=== PATIENT | female | born 1975 | race Caucasian/White ===

== ENCOUNTER 2017-09-22 19:17 | Observation (INO) | payer OTHER ==
[2017-09-22 19:24] VITALS: BMI 42.9
--- NOTE | 2017-09-22 20:11 | DR.GENAD ---
HPI - PCP Primary Care Physician: ROCHELLE - Complaint/Symptoms Chief Complaint Doctors Comments: Patient admits to chest pain today while at the [place] [facility] about two hours ago, right chest pain non radiating. Denies history of cardiopulmonary disease. Patient admits to right cheek pain Chief Complaint:: CHEST NECK PAIN [employer] - Source History Provided: Patient - Mode of Arrival Mode of Arrival: Ambulatory - Timing Onset of Chief Complaint: 09/22/17 PMH - PMH Past Medical History: No Past Surgical History: Yes Surgical History: Cholecystectomy Past Surgical History Comment: BACK - Family History History of Family Medical Conditions: Yes Family Medical History: Coronary Artery Disease, Hypertension - Social History Does patient currently use any type of tobacco product: Yes Have you used tobacco products in the last 12 months: Yes Type of Tobacco Use: Cigarettes Does any household member use tobacco: No Alcohol Use: None Do you use any recreational Drugs:: No Lives With: Spouse Lives Where: Home - infectious screening In the last 2 months have you had wt loss of >10#?: NO Have you had fever, night sweats or hemotysis?: No Have you traveled outside the country in the last 6 months?: No Isolation: Standard ROS - Review of Systems Constitutional: No Symptoms Reported Eyes: No Symptoms Reported ENTM: No Symptoms Reported Respiratoy: No Symptoms Reported Cardiovascular: No Symptoms Reported Gastrointestinal/Abdominal: No Symptoms Reported Genitourinary: No Symptoms Reported Neurological: No Symptoms Reported Musculoskeletal: See HPI Integumentary: No Symptoms Reported Hematologic/Lymphatic: No Symptoms Reported Endocrine: No Symptoms Reported Psychiatric: No Symptoms Reported All Other Systems: Reviewed and Negative PE - Vital Signs Vitals: Pulse Rate [Left Brachial] 96 Pulse Rate 102 Respiratory Rate 26 Blood Pressure [Left Arm] 143/91 Blood Pressure 165/95 O2 Sat by Pulse Oximetry 99 - General General Appearance: Alert, In No Apparent Distress - Head Head Exam: Normal Inspection, Atraumatic - Eyes Eye exam: Normal Appearance, PERRL, EOMI - ENT ENT Exam: Normal Exam External Ear Exam: Normal External Inspection TM/Canal Exam: Bilateral Normal Nose Exam: Normal Nose Exam Mouth Exam: Normal Inspection Throat Exam: Normal Inspection - Neck Neck Exam: Normal Inspection - Chest Chest Inspection: Normal Inspection - Respiratory Respiratory Exam: Normal Lung Sounds Bilat Respiratory Exam: Bilateral Clear to Auscultation - Cardiovascular Cardiovascular Exam: Regular Rate, Normal Rhythm - Abdominal Exam Abdominal Exam: Normal Inspection Abdominal Tenderness: negative: RUQ, RLQ, LUQ, LLQ, Epigastrium, Suprapubic, Diffuse, Mild, Moderate, Severe, Other - Extremities Extremities Exam: Normal Inspection - Back Back Exam: Normal Inspection - Neurologic Neurological Exam: Alert, Oriented X3, CN II-XII Intact - Psychiatric Psychiatric Exam: Normal Affect - Skin Skin Exam: Warm, Dry, Intact Course - Consultation Called: 21:15 (Dr Padilla agreed to admit for further evaluation ) ROR - Labs Reviewed Result Diagrams: 09/22/17 20:29 09/22/17 20: Laboratory: WBC 7.9 X10^3/uL (3.6-10.0) 09/22/17 20: RBC 4.06 X10^6/uL (3.5-5.4) 09/22/17 20: Hgb 12.3 g/dL (12.0-16.0) 09/22/17 20: Hct 35.2 % (36.0-47.0) L 09/22/17 20: MCV 86.7 fL (80.0-100.0) 09/22/17 20: MCH 30.2 pg (27.0-34.0) 09/22/17 20: MCHC 34.9 g/dL (33.0-35.0) 09/22/17 20: RDW 14.5 % (11.6-16.5) 09/22/17 20: Plt Count 211 X10^3/uL (150.0-450.0) 09/22/17 20: MPV 7.5 fL (7.4-11.0) 09/22/17 20: Neut % (Auto) 60.3 % (42.0-75.0) 09/22/17 20: Lymph % (Auto) 30.1 % (21.0-51.0) 09/22/17 20: [place] % (Auto) 7.0 % (0.0-13.0) 09/22/17 20: Eos % (Auto) 1.9 % (0.9-2.9) 09/22/17 20: Baso % (Auto) 0.7 % (0.2-1.0) 09/22/17 20:29 Neut # (Auto) 4.8 x10^3/uL (2.2-4.8) 09/22/17 20: Lymph # (Auto) 2.4 X10^3/uL (1.3-2.9) 09/22/17 20: [place] # (Auto) 0.5 x10^3/uL (0.3-0.8) 09/22/17 20: Eos # (Auto) 0.1 x10^3/uL (0.0-0.2) 09/22/17 20: Baso # (Auto) 0.1 X10^3/uL (0.0-0.1) 09/22/17 20: Absolute Nucleated RBC 0.0 /100WBC 09/22/17 20: INR Target Range - 09/22/17 INR 0.91 (0.8-1.3) 09/22/17 20: APTT 30.1 SECONDS (22.9-36.5) 09/22/17 20: PTT Comment - 09/22/17 20: Sodium 138 mmol/L (136-145) 09/22/17 20: Corrected Sodium TNP 09/22/17 20: Potassium 4.6 mmol/L (3.5-5.1) 09/22/17 20: Chloride 103 mmol/L (98-107) 09/22/17 20: Carbon Dioxide 28.9 mmol/L (21-32) 09/22/17 20: BUN 17 mg/dL (7-18) 09/22/17 20: Creatinine 0.91 mg/dL (0.55-1.02) 09/22/17 20: Est GFR (MDRD) Af Amer > 60 (>60) 09/22/17 20: Est GFR (MDRD) Non-Af > 60 (>60) 09/22/17 20: Glucose 98 mg/dL (65-99) 09/22/17 20: Calcium 8.1 mg/dL (8.5-10.1) L 09/22/17 20: Corrected Calcium TNP 09/22/17 20: Magnesium 1.8 mg/dL (1.7-2.9) 09/22/17 20:29 Total Bilirubin 0.10 mg/dL (0.2-1.0) L 09/22/17 20:29 AST 43 Units/L (15-37) H 09/22/17 20:29 ALT 49 Units/L (12-78) 09/22/17 20:29 Alkaline Phosphatase 84 Units/L (46-116) 09/22/17 20:29 Creatine Kinase 65 Units/L (26-192) 09/22/17 20:29 CK-MB (CK-2) < 1.0 ng/mL (0-4.0) 09/22/17 20:29 CK/CKMB % Calc 1.5 % (<4) 09/22/17 20: Troponin I < 0.02 ng/mL (0-1.5) 09/22/17 20: Total Protein 7.4 g/dL (6.4-8.2) 09/22/17 20: Albumin 3.6 g/dL (3.4-5.0) 09/22/17 20: Globulin 3.8 g/dL (2.5-4.5) 09/22/17 20:29 Albumin/Globulin Ratio 0.9 Ratio (1.1-2.1) L 09/22/17 20:29 - XRAY XRAY Interpreted by: Radiologist (Facial bones: There is a right supraorbital piercing. The visualized paranasal sinuses and facial bones appear unremarkable. The mandible appears intact without evidence of chronic dental disease.) - Diagnosis Discharge Problem: Ruled out for myocardial infarction Chest pain Qualifiers: Chest pain type: unspecified Qualified Code(s): R07.9 - Chest pain, unspecified - Discharge Plan Condition: Stable - Follow ups/Referrals Follow ups/Referrals: INEZ BYRD [Primary Care Provider] - 3 days - Instructions
[2017-09-22] MEDS ORDERED: NITROSTAT SL PRN ×2 (20:14→20:58)
[2017-09-22] MEDS ORDERED: ASPIRIN 81 MG CHEWTAB ONE (20:18)
[2017-09-22] MEDS: ASPIRIN PO SCH (20:23)
[2017-09-22 20:39] LABS: BASOPHILS # (AUTO) 0.1 X10^3/uL (0.0-0.1); BASOPHILS % (AUTO) 0.7 % (0.2-1.0); EOSINOPHILS # (AUTO) 0.1 x10^3/uL (0.0-0.2); EOSINOPHILS % (AUTO) 1.9 % (0.9-2.9); HEMATOCRIT 35.2 % (36.0-47.0); HEMOGLOBIN 12.3 g/dL (12.0-16.0); LYMPHOCYTES # (AUTO) 2.4 X10^3/uL (1.3-2.9); LYMPHOCYTES % (AUTO) 30.1 % (21.0-51.0); MEAN CORPUSCULAR HEMOGLOBIN 30.2 pg (27.0-34.0); MEAN CORPUSCULAR HGB CONC 34.9 g/dL (33.0-35.0); MEAN CORPUSCULAR VOLUME 86.7 fL (80.0-100.0); MEAN PLATELET VOLUME 7.5 fL (7.4-11.0); MONOCYTES # (AUTO) 0.5 x10^3/uL (0.3-0.8); NEUTROPHILS # (AUTO) 4.8 x10^3/uL (2.2-4.8); NEUTROPHILS % (AUTO) 60.3 % (42.0-75.0); PLATELET COUNT 211 X10^3/uL (150.0-450.0); RED BLOOD COUNT 4.06 X10^6/uL (3.5-5.4); RED CELL DISTRIBUTION WIDTH 14.5 % (11.6-16.5); WHITE BLOOD COUNT 7.9 X10^3/uL (3.6-10.0)
[2017-09-22 21:02] LABS: ALANINE AMINOTRANSFERASE 49 Units/L (12-78); ALBUMIN 3.6 g/dL (3.4-5.0); ALKALINE PHOSPHATASE 84 Units/L (46-116); ASPARTATE AMINO TRANSFERASE 43 Units/L (15-37); BLOOD UREA NITROGEN 17 mg/dL (7-18); CALCIUM 8.1 mg/dL (8.5-10.1); CARBON DIOXIDE 28.9 mmol/L (21-32); CHLORIDE 103 mmol/L (98-107); CKMB % 1.5 % (<4); CREATINE KINASE 65 Units/L (26-192); CREATINE KINASE MB < 1.0 ng/mL (0-4.0); CREATININE 0.91 mg/dL (0.55-1.02); MAGNESIUM 1.8 mg/dL (1.7-2.9); SODIUM 138 mmol/L (136-145); TOTAL PROTEIN 7.4 g/dL (6.4-8.2); TROPONIN I < 0.02 ng/mL (0-1.5); eGFR BLACK RACES > 60 (>60); eGFR NON BLACK RACES > 60 (>60)
--- NOTE | 2017-09-22 21:47 | RAD ---
HISTORY: Pain Study: Three views of the facial bones Comparison: None Findings: There is a right supraorbital piercing. The visualized paranasal sinuses and facial bones appear unre markable. The mandible appears intact without evidence of chronic dental disease. IMPRESSION: 1. No acute osseous abnormality identified. Reported By:
[2017-09-23] MEDS: MORPHINE SULFATE INJ 2 MG INJ IVP PRN ×3 (00:40→10:24)
[2017-09-23] MEDS: NORCO 5/325 MG TAB PO PRN ×2 (01:36→11:56)
[2017-09-23 03:33] LABS: CKMB % 1.5 % (<4); CREATINE KINASE 65 Units/L (26-192); CREATINE KINASE MB < 1.0 ng/mL (0-4.0); TROPONIN I < 0.02 ng/mL (0-1.5)
--- NOTE | 2017-09-23 03:35 | RAD ---
Chest, AP portable Indication: Chest pain Comparison: None Findings: The cardiac silhouette is unremarkable the lungs are grossly clear without focal infiltrate or pleural effusion. Impression: No acute chest process. Reported By:
[2017-09-23 08:25] LABS: CHOL/HDL RATIO 3.3 (0.0-5.0)
[2017-09-23 08:34] LABS: CKMB % 1.5 % (<4); CREATINE KINASE 67 Units/L (26-192); CREATINE KINASE MB < 1.0 ng/mL (0-4.0); TROPONIN I < 0.02 ng/mL (0-1.5)
[2017-09-23] MEDS: ASPIRIN PO SCH (09:51)
[2017-09-23 11:20] LABS: CREATINE KINASE 69 Units/L (26-192); CREATINE KINASE MB < 1.0 ng/mL (0-4.0); TROPONIN I < 0.02 ng/mL (0-1.5)
[2017-09-23 11:23] LABS: CKMB % 1.5 % (<4)
--- NOTE | 2017-09-23 11:56 | VAS ---
History: Neck pain Study: Carotid duplex ultrasound Findings: Images show no evidence for stenosis or plaque or significant intimal thickening. Peak systolic velocity in the right common carotid artery is 66 centimeters/second compared to 72.4 c entimeters/second in the right carotid bulb for ratio of 1.19. Peak systolic velocity in the left common carotid artery is 88.5 centimeters/second compared to 68.8 centimeters/second in the left internal carotid artery for ratio of 0.91. There is antegrade flow in the vertebral arteries. Impression: Negative Reported By:
[2017-09-23 12:03] VITALS: BP 142/66
--- NOTE | 2017-10-04 21:37 | DR.CARTERS ---
Short Stay Summary - Short Stay Summary for: Short Stay Summary for Date of:: 09/23/17 - Admission Date Date of Admission: 09/22/17 - Discharge Date Discharge Date: 09/23/17 - Admission Diagnoses (1) Chest pain Status: Acute (2) Ruled out for myocardial infarction Status: Acute - Hospital Course Hospital Course: IS A 41 YEAR OLD WHITE FEMALE WHO PRESENTED TO THE EMERGENCY ROOM WITH COMPLAINTS OF CHEST PAIN AND RIGHT SIDE NECK PAIN. PATIENT REPORTED THAT PAIN STARTED APPROXIMATELY TWO HOURS PRIOR TO ARRIVAL. SHE REPORTED THAT PAIN IS LOCATED ON THE LEFT SIDE CHEST, NECK, AND FACE. SHE DENIED A HISTORY OF CARDIOPULMONARY DISEASE. ON ARRIVAL, VITALS WERE 98.7-102-20-97%-165/95. LABS WERE OBTAINED. ABNORMAL LAB VALUES INCLUDED THE FOLLOWING: HCT 35.2, CALCIUM 8.1 , TOTAL BILIRUBIN 0.10, AST 43. CARDIAC ENZYMES WITHIN NORMAL LIMITS. EKG OBTAINED AND REVEALED SINUS RHYTHM WITH HR 91. CHEST XRAY REVEALED NO ACUTE CHEST PROCESS. A FACIAL BONES XRAY WAS OBTAINED AND REVEALED NO ACUTE ABNORMALITIES. SHE WAS GIVEN ASPIRIN 325MG AND NITROGLYCERIN SL X 2 WITH ONLY MILD IMPROVEMENT IN SYMPTOMS. PATIENT WAS ADMITTED TO THE OBSERVATION UNIT ON TELEMETRY FOR OBSERVATION OF CHEST PAIN, R/O MYOCARDIAL INFARCTION. SERIAL CARDIAC ENZYMES AND EKGS WERE OBTAINED. OTHERWISE, WE PLANNED TO FOLLOW UP WITH AM LABS AND CONTINUE TO MONITOR PATIENT. ON THE MORNING FOLLOWING ADMISSION, PATIENT DENIED CHEST PAIN OR NECK PAIN UPON ROUNDS, BUT DID REPORT PAIN THROUGHOUT THE NIGHT. EXAMINATION REVEALED HEART NORMAL IN RATE AND RHYTHM. BILATERAL LUNGS CLEAR TO AUSCULTATION ABDOMEN ROUND, SOFT, AND NON-TENDER WITH NORMAL BOWEL SOUNDS NOTED IN ALL QUADRANTS. VITALS WERE 97.4-99-21-96%-124/78. CARDIAC ENZYMES AND EKGS WERE NORMAL. A CAROTID DOPPER WAS OBTAINED AND REVEALED NO EVIDENCE FOR STENOSIS OR PLAQUE OR SIGNIFICANT INTIMAL THICKENING. WE PLANNED FOR DISCHARGE, HOWEVER, PATIENT SIGNED OUT AMA PRIOR TO DISCHARGE INSTRUCTIONS AND PAPERS GIVEN. PATIENT WAS IN STABLE CONDITION UPON LEAVING THE HOSPITAL WITH HER . - Discharge Medications Discharge Medications: Aspirin EC [ECOTRIN 325 MG *] 325 mg PO DAILY #90 tab 09/23/17 [Rx] Atorvastatin Calcium 20 mg PO HS #30 tablet 09/23/17 [Rx] - Discharge Plan Disposition: 07 AGAINST MEDICAL ADVICE Condition: Stable Prescriptions: Aspirin EC [ECOTRIN 325 MG *] 325 mg PO DAILY #90 tab Atorvastatin Calcium 20 mg PO HS #30 tablet - Follow up/Referrals Follow up/Referrals: INEZ BYRD [Primary Care Provider] - 1 WEEK - Instructions Additional Instructions: diet as tolerated. activity as tolerated.
== END 2017-09-23 13:18 | disposition left against medical advice (07) | DRG 313 ==
LOC: ER 19:28 → OBS 22:55
PROVIDERS: ADMIT Internal Medicine; ATTEND Internal Medicine
DX: R07.89 Other chest pain (principal); Z79.01 Long term (current) use of anticoagulants; M54.2 Cervicalgia
CPT/HCPCS: 36415; 70150; 71045; 80053; 80061; 82550; 82553; 83735; 84484; 85025; 85610; 85730; 93005; 93880; 94760; 96365; 99284; A4216; A4222; G0378; J2270